=== PATIENT | male | born 1940 | race Caucasian/White ===

== ENCOUNTER 2017-01-02 11:14 | Inpatient (IN) ==
[2017-01-02] MEDS ORDERED: ASPIRIN PO STA (11:53)
--- NOTE | 2017-01-02 12:44 | Diag Imaging Result Doc PS360 ---
EXAM: CHEST-1 VIEW INDICATION: weak TECHNIQUE: One view COMPARISON: 07/23/2014 FINDINGS: There is evidence of prior granulomatous disease, stable. There is suggestion of mild subsegmental atelectasis at the lung bases. The lungs are grossly clear, otherwise. There is no discrete pleural fluid collection or pneumothorax. The cardiomediastinal silhouette and central vasculature are grossly unremarkable. IMPRESSION: Suggestion of mild bibasilar atelectasis. No definite acute pathology, otherwise. Electronically signed by Ady Berrios 01/02/2017 12:42 PM
[2017-01-02 12:45] LABS: BASO% 0.4 % (0.0-0.8); EOS# 0.04 X1000 (0.0-0.7); EOS% 0.3 % (0.0-10.0); HEMATOCRIT 46.6 % (42.0-52.0); HEMOGLOBIN 16.5 g/dL (14.0-18.0); IMM GRAN# 0.05 X1000 (0.0-0.04); IMM GRAN% 0.4 % (0.0-0.5); LYMPH# 0.93 X1000 (1.2-3.4); MANUAL DIFF NEEDED? NO; MCH 33.7 PG (27-31); MCHC 35.4 g/dL (33-37); MCV 95.1 FL (81-99); MONO# 0.78 X1000 (0.11-0.59); MONO% 5.8 % (1.7-9.3); MPV 10.3 FL (7.4-10.4); NEUT% 86.1 % (42.2-75.2); PLT 157 X1000 (130-400)
[2017-01-02 12:54] LABS: INR 1.02; PROTIME 10.7 Seconds (9.2-11.7); PTT 23.4 Seconds (22.0-36.0)
[2017-01-02 13:15] LABS: AGAP 14; ALBUMIN 4.3 g/dL (3.5-5.0); ALKALINE PHOSPHATASE 93 U/L (32-122); BUN 14 mg/dL (8-22); CALCIUM 8.5 mg/dL (8.8-10.2); CHLORIDE 102 mmol/L (98-107); COSMO 283; GOT 31 U/L (10-34); GPT 37 U/L (10-44); SODIUM 141 mmol/L (136-145); TCO2 25 mmol/L (25-35); TOTAL BILIRUBIN 0.41 mg/dL (0.20-1.00)
--- NOTE | 2017-01-02 13:20 | EKG Report ---
Test Performed on : 01/02/2017 12:41:06 PM Test Reason : Chest Pain Blood Pressure : / mmHG Vent. Rate : 080 BPM Atrial Rate : 080 BPM P-R Int : 210 ms QRS Dur : 078 ms QT Int : 416 ms P-R-T Axes : 070 -23 033 degrees QTc Int : 479 ms Sinus rhythm. with 1st degree AV block. Inferior infarct , age undetermined Abnormal ECG When compared with ECG of 09-OCT-2012 06:17, premature ventricular complexes. are no longer present Inferior infarct is now present Unconfirmed Result
[2017-01-02 13:22] LABS: CK PROFILE 288 U/L (24-204)
[2017-01-02] MEDS ORDERED: ZOFRAN ONE (13:29)
[2017-01-02] MEDS ORDERED: ZOFRAN IV ONE (13:35)
[2017-01-02 13:39] LABS: CK INDEX 2.8 (0.0-2.5); CK-MB 8.19 ng/mL (0.0-5.0)
--- NOTE | 2017-01-02 14:51 | PROVIDER DOCUMENTATION ---
This chart was entered by Gege An Scribe, acting as scribe for Matty Gibbs MD. HPI-General Adult - General Stated Complaint: N/V Time Seen by Provider: 01/02/17 11:52 Source: patient Allergies/Adverse Reactions: Patient Allergies Allergy/AdvReac Type Severity Reaction Status Date / Time morphine Allergy Severe HYPOTENSION Verified 01/02/17 12:16 Home Medications: Home Medication List Medication Instructions Recorded Confirmed Last Taken Type Alprazolam [Xanax] 0.25 mg PO BID PRN PRN 10/09/12 01/02/17 01/02/17 History Clopidogrel [Plavix] 75 mg PO DAILY #0 tablet 10/09/12 01/02/17 01/02/17 Rx Losartan [Cozaar] 50 mg PO BID 10/09/12 01/02/17 01/02/17 Rx Aspirin 325 mg PO HS 07/23/14 01/02/17 01/02/17 History Amlodipine Besylate [Amlodipine 5 mg PO DAILY 01/02/17 01/02/17 01/02/17 History Besylate] Metoprolol Succinate [Metoprolol 25 mg PO DAILY 01/02/17 01/02/17 01/02/17 History Succinate] - History of Present Illness -Gen Adult Nature of Presenting Problems: Pt is a 76 year old male who came to the ED with a cc of N/V and fever since this morning. Pt reports he was at his PCP who diagnosed him with pneumonia last week and has been on antibiotics. Location of Pain/Injury: reports: generalized Pain Radiation: reports: no radiation Quality of Pain: reports: cramping Severity: reports: mild Onset/Duration: reports: this morning Timing: reports: still present Associated Symptoms: reports: nausea, vomiting Similar Symptoms Previously?: No Recently seen or treated by another doctor?: Yes Review of Systems - Adult - REVIEW OF SYSTEMS - ADULT Constitutional: reports: chills, fever. denies: fatique, weight loss Eyes: reports: no symptoms reported Ears, Nose, Mouth & Throat: reports: no symptoms reported Cardiovascular: reports: no symptoms reported Respiratory: denies: cough, shortness of breath Gastrointestinal: reports: abdominal pain, nausea, vomiting. denies: hematemesis, diarrhea, frequent heartburn Genitourinary: reports: no symptoms reported Musculoskeletal: denies: bone pain, joint swelling Integumentary: reports: no symptoms reported Neurological: denies: loss of balance, paresthesia Psychiatric: reports: no symptoms reported Endocrine: reports: no symptoms reported Hematologic/Lymphatic: reports: no symptoms reported Allergic/Immunologic: reports: no symptoms reported All Other Systems: Reviewed and Negative Past History - Adult - PAST MEDICAL HISTORY-ADULT Review of Records: reports: Nursing Assessment Review Major Childhood Illnesses: reports: denies history Cardiovascular: reports: HTN, hyperlipidemia Respiratory: reports: COPD Gastrointestinal: reports: GERD Obstetrical/Gynecological: reports: denies history Genitourinary: reports: denies history Musculoskeletal: reports: denies history Neurological: reports: denies history Endocrine/Immune: reports: denies history Other Conditions: reports: denies history - IMMUNIZATION STATUS Childhood Immunizations: See Nurse Assessment Flu Vaccine: See Nurse Assessment - FAMILY HISTORY Family History: reviewed, not pertinent Physical Exam-General - PHYSICAL EXAM-ADULT Initial Vital Signs Reviewed: Yes - CONSTITUTIONAL General Appearance: alert, no apparent distress - EYES Eyes: PERRL/EOMI, pink conjunctivae - HEAD, EARS, NOSE, MOUTH & THROAT HENMT: normocephalic/atraumatic, moist mucous membranes - NECK Neck: non-tender, full range of motion - RESPIRATORY Respiratory: chest non-tender, lungs clear - CARDIOVASCULAR Cardiovascular: normal peripheral pulses, regular rate, rhythm - GASTROINTESTINAL (ABDOMEN) Abdominal Exam: normal bowel sounds, soft - MUSCULOSKELETAL Back Exam: normal inspection, no CVA tenderness Extremity: normal range of motion, non-tender - SKIN Integumentary: normal color - NEUROLOGIC Neurologic: grossly normal - PSYCHIATRIC Psych/Mental Status: normal mood/affect, normal thought content, normal thought process, oriented x 3 Progress - PLAN OF CARE/RESULTS Progress/Plan/Lab Results: Orders Category Date Time Status Cardiac Monitoring DIRECTED Care 01/02/17 11:53 Active Oxygen Therapy- ED Nursing DIRECTED Care 01/02/17 11:53 Active Saline Loc NOW Care 01/02/17 11:53 Active CHEST-1 VIEW [RAD] Stat Exams 01/02/17 11:54 Ordered CBC WITH ELECTRONIC DIFF [HEME] Stat Lab 01/02/17 11:53 Uncollected CK PROFILE [SP CHEM] Stat Lab 01/02/17 11:53 Uncollected COMPREHENSIVE METABOLIC PANEL [CHEM] Stat Lab 01/02/17 11:53 Uncollected MAGNESIUM [CHEM] Stat Lab 01/02/17 11:53 Uncollected PRO B-NATRIURETIC PEPTIDE Stat Lab 01/02/17 11:53 Uncollected PROTIME WITH INR [COAG] Stat Lab 01/02/17 11:53 Uncollected PTT [COAG] Stat Lab 01/02/17 11:53 Uncollected TROPONIN T Stat Lab 01/02/17 11:53 Uncollected Aspirin Med 01/02/17 11:53 Discontinued 325 mg PO STAT STA EKG [EKG] Stat Ther 01/02/17 11:53 Ordered Result Diagrams: 01/02/17 12:31 01/02/17 12:31 - EKG 1 Time of EKG reading by physician:: 12:41 EKG Read and Signed by:: Matty Gibbs EKG Interpretation (*Must complete 3 of following elements*): Abnormal Rate: 80 (inferior infarct, age undetermined) Rhythm: sinus rhythm w 1 degree AV block - XRAY 1 XRAY Study: Chest (suggestion of mild bibasilar atelectasis. no definite acute pathology, otherwise) Departure - Departure Date of Disposition Decision: 01/02/17 Time of Disposition Decision: 14:50 DIAGNOSIS: Pneumonia Disposition: ADMITTED INPATIENT 09 Certified Medical Emergency: Emergent Condition: Critical Additional Freetext Instructions: ADMIT TO DR. PIERCE Referrals and Follow-Ups: Robert Rodriguez DO [Primary Care Provider] - - Critical Care Note This patient required my direct & personal management of CC.: No Attestation - Physician/ NICHOLAS Attestation The physician spent face to face time with patient:: Yes Advanced Practice Provider documentation review:: The physician spent face to face time with this patient and agrees with all MLP documentation, treatment, and medical decision making by the MLP. See provider notes for further information. This chart was documented by the indicated scribe, (Gege An Scribe) and accurately reflects the services I performed and decisions made by Sai hahn Christophe I, MD, as attested by the provider's signature.
[2017-01-02] MEDS ORDERED: VANCOMYCIN IV PER PHARMACY MISC SCH (15:00)
[2017-01-02] MEDS: ZOSYN 3.375 GM/NS 3.375 GM/50 ML IVPB IV SCH ×2 (15:00→22:22)
[2017-01-02] MEDS ORDERED: ANTIVERT PO PRN (16:05)
--- NOTE | 2017-01-02 17:00 | Diag Imaging Result Doc PS360 ---
EXAM: HEAD W/WO CONTRAST INDICATION: headache, dizziness COMPARISON: 10/09/2012 FINDINGS: There is fairly extensive patchy low attenuation in the periventricular and subcortical white matter suggesting advanced microangiopathy, stable. There is a stable chronic lacunar infarct involving the right basal ganglion. There is no definite acute infarct given the limited sensitivity of CT versus MRI. There is no discrete intracranial mass, mass effect, or intracranial hemorrhage. There is no evidence of abnormal intracranial enhancement. There is moderate bilateral ethmoid and right maxillary sinus mucosal thickening. Surrounding soft tissues and bony structures are essentially unremarkable, otherwise. IMPRESSION: 1.Stable chronic changes but no evidence of acute intracranial pathology. 2.Right maxillary and ethmoid sinus mucosal disease. Electronically signed by Ady Berrios 01/02/2017 4:58 PM
--- NOTE | 2017-01-02 17:15 | Diag Imaging Result Doc PS360 ---
EXAM: Emphysematous changes. Bilateral dependent atelectasis. No discrete pneumonia. - 01/02/2017 HISTORY: suspected PE TECHNIQUE: With intravenous contrast. Dose reduction protocol. COMPARISON: None. FINDINGS: There are no filling defects identified in the pulmonary arteries. There is no indication of aortic dissection. The descending aorta is somewhat tortuous, mildly ectatic, has a small amount of mural thrombus. There are emphysematous changes. There is bilateral dependent atelectasis. There is no consolidation, pleural effusion, or pneumothorax identified. There is a calcified granuloma from old granulomatous disease at the left upper lobe. IMPRESSION: No evidence of pulmonary embolism. Electronically signed by Tom Harp 01/02/2017 5:12 PM
[2017-01-02 18:08] LABS: URINE CULTURE NEEDED? NO; URINE MICRO REVIEW NEEDED? NO; URINE SOURCE CLEAN CATCH
[2017-01-02 18:16] LABS: BILIRUBIN URINE NEGATIVE (NEGATIVE); BLOOD URINE NEGATIVE (NEGATIVE); COLOR STRAW; GLUCOSE URINE NEGATIVE (NEGATIVE); LEUKOCYTES URINE NEGATIVE (NEGATIVE); NITRITE URINE NEGATIVE (NEGATIVE); PROTEIN URINE NEGATIVE (NEGATIVE); SP GRAVITY URINE 1.016; TURBIDITY URINE CLEAR (CLEAR); UROBILINOGEN URINE NORMAL (NORMAL)
[2017-01-02 18:20] LABS: UR EPITHELIAL CELLS <10 /HPF (<10); URINE BACTERIA NEGATIVE /HPF; URINE RBC <10 /HPF (<10); URINE WBC <10 /HPF (<10)
[2017-01-02] MEDS ORDERED: NS 1,000 ML IV ONE (18:23)
[2017-01-02] MEDS ORDERED: TYLENOL PO PRN (18:23)
--- NOTE | 2017-01-02 18:24 | HISTORY AND PHYSICAL ---
PRIMARY CARE PROVIDER: [facility]. CHIEF COMPLAINT: Productive cough, shortness of breath, dizziness, nausea, vomiting. HISTORY OF PRESENT ILLNESS: Mr. Sykes is a 76-year-old, male, with a medical history of coronary artery disease, metabolic syndrome, dyslipidemia, anxiety disorder, hypertension, peripheral vascular disease, renal artery stenosis, COPD, gastritis, hematuria , who apparently 1 week ago went to [facility] and was diagnosed with pneumonia and was given Ancef 1 week's worth of clarithromycin. He had presented to him with feeling of generalized weakness, coughing up thick white phlegm and shortness of breath at that time. He had no improvement of these symptoms and today started feeling dizzy, a little lightheaded. He had 1 spell of nausea and vomiting, but denies chest pain, denies fever or chills. He does feel short of breath with activity only and does have a very thick productive cough with white phlegm. Workup revealed chest x-ray which suggested mild bibasilar atelectasis but no acute findings. EKG was sinus rhythm with no ST changes. Head CT showed no acute findings. He did have an elevated white blood count of 13,000, but was afebrile. Lactate was normal at 1.6. So will admit for failed outpatient treatment of pneumonia. PAST MEDICAL HISTORY: Dyslipidemia, metabolic syndrome, coronary artery disease , anxiety disorder, hypertension, peripheral vascular disease, renal artery stenosis, COPD , but no home oxygen, gastritis, hematuria. SURGICAL HISTORY: Back surgery in 2001. Had a cardiac stent in September 2016. SOCIAL HISTORY: Smokes 2 packs per day but quit smoking in July 2016. Denies alcohol or illicit drug use. Lives at home with his . FAMILY HISTORY: Mother had a stroke. Father is due to old age. Brother secondary to suicide. Other siblings with cardiac and vascular issues. REVIEW OF SYSTEMS: Fourteen point review of systems were complete and all were negative except for those mentioned in above HPI. ALLERGIES: Morphine. HOME MEDICATIONS: Xanax 0.25 mg p.o. twice daily as needed. Amlodipine besylate 5 mg p.o. daily. Aspirin 325 mg p.o. nightly. Plavix 75 mg p.o. daily. Cozaar 50 mg p.o. twice daily. Metoprolol extended release 25 mg p.o. daily. PHYSICAL EXAMINATION: VITAL SIGNS: Temperature 98.0 degrees, heart rate 73, respiratory rate 14, blood pressure 135/84, O2 saturation 91% on room air. GENERAL: Mr. Clem Sykes is a 76-year-old, male. He is in no acute distress and is able answer questions appropriately. HEENT: Atraumatic, normocephalic. Pupils equal, round, reactive to light. Extraocular movements intact. NECK: No JVD or carotid bruits noted. CARDIOVASCULAR: S1, S2. Regular rate and rhythm. No rubs, gallops, murmurs. PULMONARY: Clear to auscultate with bilateral breath sounds decreased in the bases. No accessory muscle use or work of breathing noted. GI: Soft, nontender, nondistended. Positive bowel sounds x4. EXTREMITIES: No edema noted. +2 dorsalis and radial pulses. SKIN: Warm, dry, intact. NEUROLOGIC: A and O x4. Moves all extremities equally. LABORATORY DATA: White blood cells 13,000, hemoglobin 16, hematocrit 46, platelet count 157,000. INR 1.02. PTT is 23.4. Sodium 141, potassium 4.0, BUN 14, creatinine 0.9, glucose 114, calcium 8.5, magnesium 2.0, bilirubin 0.41. AST 31, ALT 37, CK 288. CK-MB 8.19. Troponin less than 0.01. ProBNP 50. Lactate 1.6. Urinalysis pending. IMAGING: Pulmonary arteriogram, pending report. Head CT showed stable chronic changes, no evidence of acute intracranial pathology. Right maxillary and ethmoid sinus mucosal disease. It appears that there is a stable chronic lacunar infarct involving the right basal ganglia. Chest x- ray: Mild bibasilar atelectasis, no other acute findings. EKG: Sinus rhythm, rate 80, QTc is 479, first-degree AV block, no ST elevations. ASSESSMENT AND PLAN: 1. Failed outpatient treatment for pneumonia. We will start on vancomycin and Zosyn, order a sputum culture. We will go ahead and order urinalysis and a round of blood cultures. 2. Chronic obstructive pulmonary disease. No exacerbation. We will do respiratory treatments. 3. Coronary artery disease history. We will repeat cardiac enzymes in the morning. It appears he has a chronically elevated CK even from 2 years ago. No complaints of chest pain at this time. Most recent cardiac stent was in September 2016. She will continue with Plavix. 4. Anxiety disorder. Continue with p.r.n. Xanax. 5. Hypertension. Continue home medications. 6. Patient complains of dizziness. Head CT obtained which showed no acute findings. We will do orthostatics and meclizine p.r.n. 7. Nausea, vomiting x1, likely secondary to dizziness which could be from sinus issues per head CT. 8. History of remote tobacco abuse. Cessation continued to be discussed. 9. Shortness of breath with activity likely secondary to #1. We will follow up with pulmonary CTA. Dictated by JOE Lerma for Ponce Nair MD cc: JOE Lerma MD Jeffrey A. Johnson, MTDD
[2017-01-02] MEDS: DUONEB (A & A) INH SCH ×2 (19:29→22:55)
[2017-01-02] MEDS: PULMICORT INH SCH (19:29)
[2017-01-02] MEDS: MUCOMYST 20% INH SCH (19:29)
[2017-01-02] MEDS ORDERED: VANCOMYCIN 2,400 MG in NS 500 ML IV ONE (20:00)
[2017-01-02] MEDS: COZAAR PO SCH (20:58)
[2017-01-02] MEDS: ASPIRIN PO SCH (20:58)
[2017-01-03] MEDS: ZOSYN 3.375 GM/NS 3.375 GM/50 ML IVPB IV SCH ×4 (02:11→21:12)
[2017-01-03] MEDS: DUONEB (A & A) INH SCH ×5 (02:44→20:18)
[2017-01-03 05:50] LABS: MANUAL DIFF NEEDED? NO
[2017-01-03 06:03] LABS: BASO% 0.7 % (0.0-0.8); EOS# 0.15 X1000 (0.0-0.7); EOS% 1.5 % (0.0-10.0); HEMATOCRIT 45.2 % (42.0-52.0); HEMOGLOBIN 15.8 g/dL (14.0-18.0); IMM GRAN# 0.03 X1000 (0.0-0.04); IMM GRAN% 0.3 % (0.0-0.5); LYMPH# 1.87 X1000 (1.2-3.4); MCH 33.3 PG (27-31); MCV 95.2 FL (81-99); MONO# 0.78 X1000 (0.11-0.59); MONO% 7.9 % (1.7-9.3); MPV 10.5 FL (7.4-10.4); NEUT% 70.6 % (42.2-75.2); PLT 151 X1000 (130-400); RBC 4.75 XMIL (4.7-6.1)
[2017-01-03 06:15] LABS: AGAP 12; ALKALINE PHOSPHATASE 87 U/L (32-122); BUN 14 mg/dL (8-22); CALCIUM 9.3 mg/dL (8.8-10.2); CHLORIDE 105 mmol/L (98-107); COSMO 282; GOT 24 U/L (10-34); GPT 30 U/L (10-44); SODIUM 141 mmol/L (136-145); TCO2 25 mmol/L (25-35); TOTAL PROTEIN 6.6 g/dL (6.3-8.3)
--- NOTE | 2017-01-03 08:10 | EKG Report ---
Test Performed on : 01/03/2017 07:50:15 AM Test Reason : cad hx Blood Pressure : / mmHG Vent. Rate : 072 BPM Atrial Rate : 072 BPM P-R Int : 194 ms QRS Dur : 082 ms QT Int : 424 ms P-R-T Axes : 042 004 054 degrees QTc Int : 464 ms Normal sinus rhythm. Low voltage QRS Borderline ECG When compared with ECG of 02-JAN-2017 12:41, (Unconfirmed) Criteria for Inferior infarct are no longer present Unconfirmed Result
[2017-01-03] MEDS: MUCOMYST 20% INH SCH ×2 (08:15→20:18)
[2017-01-03] MEDS: PULMICORT INH SCH ×2 (08:15→20:18)
[2017-01-03] MEDS: NORVASC PO SCH (09:42)
[2017-01-03] MEDS: TOPROL XL PO SCH (09:42)
[2017-01-03] MEDS: PLAVIX PO SCH (09:42)
[2017-01-03] MEDS: COZAAR PO SCH ×2 (09:42→21:12)
[2017-01-03] MEDS: XANAX PO PRN ×2 (09:52→21:12)
[2017-01-03] MEDS ORDERED: VANCOMYCIN 2,000 MG in NS 500 ML IV SCH (20:00)
[2017-01-03] MEDS: ASPIRIN PO SCH (21:12)
[2017-01-04] MEDS: DUONEB (A & A) INH SCH ×7 (00:10→23:26)
[2017-01-04] MEDS: ZOSYN 3.375 GM/NS 3.375 GM/50 ML IVPB IV SCH ×4 (02:11→21:00)
[2017-01-04 06:36] LABS: HEMATOCRIT 45.1 % (42.0-52.0); HEMOGLOBIN 15.7 g/dL (14.0-18.0); MCH 33.5 PG (27-31); MCHC 34.8 g/dL (33-37); MCV 96.2 FL (81-99); MPV 10.5 FL (7.4-10.4); RBC 4.69 XMIL (4.7-6.1)
[2017-01-04 07:04] LABS: AGAP 11; BUN 15 mg/dL (8-22); CALCIUM 8.7 mg/dL (8.8-10.2); CHLORIDE 105 mmol/L (98-107); COSMO 284; POTASSIUM 3.6 mmol/L (3.5-5.1); SODIUM 142 mmol/L (136-145); TCO2 26 mmol/L (25-35)
[2017-01-04] MEDS: MUCOMYST 20% INH SCH ×2 (07:35→20:09)
[2017-01-04] MEDS: PULMICORT INH SCH ×2 (07:35→20:10)
[2017-01-04] MEDS: COZAAR PO SCH ×2 (08:47→21:00)
[2017-01-04] MEDS: TOPROL XL PO SCH (08:47)
[2017-01-04] MEDS: PLAVIX PO SCH (08:47)
[2017-01-04] MEDS: NORVASC PO SCH (08:48)
--- NOTE | 2017-01-04 11:03 | PROGRESS NOTE ---
DATE: 01/03/2017 SUBJECTIVE: The patient has no focal complaints. OBJECTIVE: Vital Signs: Blood pressure 139/82, heart rate of 86, respiratory rate of 12, temperature of 97.9 degrees, and 93% on 2L. Cardiovascular: Regular rate and rhythm. Pulmonary: Bilateral breath sounds. Clear to auscultation. Gastrointestinal: Soft, nontender, nondistended. Bowel sounds are positive. LABORATORY DATA: White count 9, hemoglobin and hematocrit 15 and 45, and platelets of 151,000. Basic was normal. Creatine kinase is 211. PROBLEM LIST: 1. Multilobar pneumonia, presumed bacterial type. We will continue empiric antibiotics. He is on Zosyn and vancomycin. I am not quite sure if he needs both of those. I guess we are treating for institutional-acquired pneumonia for failed outpatient treatment. In any case, patient clinically seems improved. We will continue pulmonary toilet and follow. 2. Chronic obstructive pulmonary disease. Stable. 3. Coronary artery disease. No evidence of acute issue. Continue blood pressure control. DISPOSITION: Pending clinical resolution. Likely home in the next 1-2 days. cc: Arya Bradley MD
--- NOTE | 2017-01-04 19:57 | PROGRESS NOTE ---
DATE: 01/04/2017 SUBJECTIVE: Patient notes that he is feeling a lot better today. He is having less cough, less congestion, less shortness of breath. However, has not been out of bed. Denies any chest pain, palpitations. OBJECTIVE: Vital signs: Temperature 98, pulse 88, respiratory 20, blood pressure 129/70, saturation 92% on room air. General: Patient is awake, alert. He is currently in no respiratory distress. He is lying in bed. Pleasant to talk with. Speech is regular. Memory is intact. Neck: Supple. CARDIOVASCULAR: Regular rate. Chest: Relatively clear. Abdomen: Soft. Extremities: Moves all extremities. Neurologic: No changes. Skin: Warm and dry. No rashes. DIAGNOSTIC DATA: CBC and CMP essentially normal. ASSESSMENT: 1. Leukocytosis, resolved. White blood cell is currently 7, was 13 on admit. 2. Hypertension, stable. Blood pressure is better, currently 129/78. 3. Failed outpatient pneumonia, currently still on antibiotics. He is on vancomycin and Zosyn. We will stop the vancomycin. PLAN: We will continue his current home medications. Continue antibiotics with Zosyn. We will stop vancomycin. We will continue to follow. Hopefully home in the next 1-2 days. Discussed with patient to ambulate the hernandez and see how he does. cc: Otto Lugo MD
[2017-01-04] MEDS: XANAX PO PRN (21:00)
[2017-01-04] MEDS: ASPIRIN PO SCH (21:00)
[2017-01-05] MEDS: DUONEB (A & A) INH SCH ×3 (03:24→11:20)
[2017-01-05] MEDS: ZOSYN 3.375 GM/NS 3.375 GM/50 ML IVPB IV SCH ×2 (03:30→08:03)
[2017-01-05] MEDS: PULMICORT INH SCH (07:58)
[2017-01-05] MEDS: MUCOMYST 20% INH SCH (07:59)
[2017-01-05] MEDS: TOPROL XL PO SCH (08:03)
[2017-01-05] MEDS: PLAVIX PO SCH (08:03)
[2017-01-05] MEDS: COZAAR PO SCH (08:03)
[2017-01-05] MEDS: NORVASC PO SCH (08:03)
[2017-01-05] MEDS ORDERED: OMNICEF PO SCH (09:15)
[2017-01-05 10:59] VITALS: BP 130/85
--- NOTE | 2017-01-05 16:04 | DISCHARGE SUMMARY ---
ADMISSION DATE: 01/02/2017 DISCHARGE DATE: 01/05/2017 PRIMARY CARE PHYSICIAN: Robert Rodriguez MD ADMISSION DIAGNOSES: 1. Failed outpatient treatment for pneumonia. 2. Chronic obstructive pulmonary disease. 3. Coronary artery disease. 4. Anxiety disorder. 5. Hypertension. DISCHARGE DIAGNOSES: 1. Failed outpatient treatment for pneumonia. 2. Chronic obstructive pulmonary disease. 3. Coronary artery disease. 4. Anxiety disorder. 5. Hypertension. SUMMARY OF FINDINGS: This is a 76-year-old male who presented from his primary care physician's office after being seen there a week ago and diagnosed with pneumonia. He was given a week's worth of clarithromycin. He felt that he was not getting any better so he came to the emergency room and stated that he felt short of breath with activity, had a very thick productive cough with white phlegm. His workup on his chest x-ray suggested mild bibasilar atelectasis but no acute findings. [place] [id number], but was afebrile so he was admitted for failed outpatient treatment of pneumonia and placed on vancomycin and Zosyn initially. Sputum culture was obtained that showed normal bethel and 1+ yeast. Blood cultures had no growth after 48 hours. His white cells have returned to normal. His electrolytes are within normal limits. He has been afebrile for greater than 24 hours and it is felt that he can safely be discharged home today. He has been ambulating in the hallway and saturating 93-95% on room air and denies any further shortness of breath at this time. So, it is felt that he can safely be discharged home. DISCHARGE MEDICATIONS: Will include: 1. Norvasc 5 mg p.o. daily. 2. Aspirin 325 mg p.o. at bedtime. 3. Prescription for Omnicef 300 mg p.o. b.i.d. #14. No refills. 4. Plavix 75 mg p.o. daily. 5. Metoprolol 25 mg p.o. b.i.d. 6. Xanax 0.5 mg p.o. b.i.d. p.r.n. 7. Cozaar 100 mg p.o. daily. 8. Omeprazole 40 mg p.o. daily. FOLLOWUP: He will follow up with his primary care physician in 1-2 weeks and call the office for an appointment. TIME SPENT ON DISCHARGE: Thirty-five minutes. Dictated by JOE Cedillo for Otto Lugo MD cc: JOE Cedillo MD Jeffrey A. Johnson, DO
== END 2017-01-05 13:35 | disposition home or self-care (01) ==
LOC: ED 11:14 → SUATTDRO 17:08 → P.MEDSURG 17:08
PROVIDERS: ATTEND Family Medicine